=== PATIENT | male | born 1970 | race Hispanic/Latino ===

== ENCOUNTER 2017-12-06 11:46 | Emergency (ER) | payer BC ==
[2017-12-06 12:39] LABS: #Eosinphils 0.1 thou/uL (0.0-0.7); #Lymphocytes 1.9 thou/uL (1.20-3.40); #Neutrophils 8.4 thou/uL (1.40-6.50); %Basophils 0.3 % (0.0-1.0); %Eosinophils 0.6 % (0.0-10.0); %Lymphocytes 16.2 % (21.0-51.0); %Monocytes 9.2 % (0.0-10.0); %Neutrophils 73.8 % (42.0-75.0); Hemoglobin 14.9 g/dL (14.0-18.0); Mean Corpuscular HGB CONC 34.3 g/dL (32.0-36.0); Mean Corpuscular Hemoglobin 30.5 pg (27.0-31.0); Mean Corpuscular Volume 88.8 fl (80.0-94.0); Mean Platelet Volume 7.8 fL (7.4-10.4); Platelet Count 241 thou/uL (130-400); RBC Distribution Width 12.1 % (11.5-14.5); Red Blood Cell (RBC) Count 4.88 mill/uL (4.70-6.10); White Blood Cell (WBC) Count 11.4 thou/uL (4.8-10.8)
[2017-12-06] MEDS ORDERED: ISOVUE-370 76%-LOCM 1 ML ONE (13:11)
[2017-12-06 13:23] LABS: ALT (SGPT) 29 U/L (8-55); AST (SGOT) 12 U/L (5-34); Albumin 4.2 g/dL (3.5-5.0); Alkaline Phosphatase 67 U/L (40-150); Anion Gap 12 mmol/L (10-20); BUN (Urea Nitrogen) 15 mg/dL (8.9-20.6); Bilirubin, Total 2.2 mg/dL (0.2-1.2); Calc. Creatinine Clearance 0 mL/min (70-130); Calcium 8.8 mg/dL (7.8-10.44); Carbon Dioxide 24 mmol/L (22-29); Chloride 102 mmol/L (98-107); Estimated GFR-MDRD Greater than 90; Globulin 3.2 g/dL (2.4-3.5); Glucose 95 mg/dL (70-105); Potassium 3.6 mmol/L (3.5-5.1); Protein, Total 7.4 g/dL (6.0-8.3); Sodium 134 mmol/L (136-145)
[2017-12-06 13:25] LABS: Bilirubin Negative (Negative); Blood, Urine Negative (Negative); Clarity CLEAR (Clear); Glucose, Urine (Dipstick) Negative (Negative); Leukocyte Negative (Negative); Nitrite Negative (Negative); Protein, Urine (Dipstick) Negative (Neg-Trace); Urobilinogen 0.2 mg/dL (0.2-1.0)
[2017-12-06] MEDS ORDERED: Ketorolac Tromethamine 30 MG/ML VIAL ONE (13:55)
--- NOTE | 2017-12-06 15:29 | CT ---
CT ABDOMEN AND PELVIS WITH IV CONTRAST: INDICATIONS: History of abdominal pain and diverticulitis. FINDINGS: There is very mild wall thickening with pericolonic inflammatory stranding involving the sigmoid colo n, suspicious for mild, noncomplicated diverticulitis. No drainable fluid collection is grossly evid ent. There is fatty infiltration of the liver. There is a small hypodensity within the central aspect of the right hepatic lobe, which is stable to a comparison in 2017 and 2015, likely reflecting a small c yst. The adrenal glands, pancreas, and spleen appear within normal limits. The kidneys are normal a ppearing. No enlarged lymph nodes are evident. The appendix is surgically absent. No drainable fluid collection is evident. No definite acute osseous abnormality is evident. IMPRESSION: 1. Findings suspicious for mild, noncomplicated sigmoid diverticulitis. 2. Fatty liver. 3. Stable hepatic cyst. 4. Other chronic findings as above. POS: GAYLA
== END 2017-12-06 15:36 | disposition home or self-care (01) ==
LOC: ERS 11:46
DX: K57.92 Diverticulitis of intestine, part unspecified, without perforation or abscess without bleeding (principal); R33.9 Retention of urine, unspecified; Z79.899 Other long term (current) drug therapy
CPT/HCPCS: 74177; 80053; 81003; 83690; 85025; 96361; 96374; J1885

== ENCOUNTER 2018-03-15 20:50 | Emergency (ER) | payer BC ==
[2018-03-15 21:21] LABS: Bilirubin Negative (Negative); Blood, Urine Negative (Negative); Clarity CLEAR (Clear); Glucose, Urine (Dipstick) Negative (Negative); Leukocyte Negative (Negative); Nitrite Negative (Negative); Protein, Urine (Dipstick) Negative (Neg-Trace); Specific Gravity, Urine 1.009 (1.002-1.036); Urobilinogen 0.2 mg/dL (0.2-1.0)
[2018-03-15 22:22] LABS: Anion Gap 16 mmol/L (10-20); BUN (Urea Nitrogen) 16 mg/dL (8.9-20.6); Calc. Creatinine Clearance 0 mL/min (70-130); Carbon Dioxide 17 mmol/L (22-29); Chloride 105 mmol/L (98-107); Estimated GFR-MDRD 85; Glucose 88 mg/dL (70-105); Sodium 134 mmol/L (136-145)
[2018-03-15 22:27] LABS: Band 7 % (5-11); Eosinophils 2 % (0-10); Hemoglobin 15.4 g/dL (14.0-18.0); Lymphocytes 17 % (21-51); MDiff Complete? YES; Mean Corpuscular HGB CONC 35.3 g/dL (32.0-36.0); Mean Corpuscular Hemoglobin 31.5 pg (27.0-31.0); Mean Corpuscular Volume 89.4 fL (78.0-98.0); Mean Platelet Volume 9.2 fL (7.4-10.4); Monocytes 3 % (0-10); Neutrophil 71 % (42-75); PLT Morphology Comment Appears Decreased; Platelet Count 91 thou/uL (130-400); RBC Distribution Width 12.2 % (11.5-14.5); Red Blood Cell (RBC) Count 4.89 mill/uL (4.70-6.10); White Blood Cell (WBC) Count 14.8 thou/uL (4.8-10.8)
== END 2018-03-15 23:16 | disposition home or self-care (01) ==
LOC: ERS 20:50
DX: N41.9 Inflammatory disease of prostate, unspecified (principal); Z79.899 Other long term (current) drug therapy
CPT/HCPCS: 36415; 80048; 81003; 85025; 87086; 99283

== ENCOUNTER 2020-02-01 12:18 | Emergency (ER) | payer BC, OTHER | END 2020-02-01 12:55 | disposition home or self-care (01) | LOC: ERS 12:18 | DX: U07.1 COVID-19 (principal) | CPT/HCPCS: 87635; 99283; U0003 ==

== ENCOUNTER 2020-02-18 09:32 | Emergency (ER) | payer BC, OTHER ==
[2020-02-20 13:28] LABS: SARS-CoV-2 orf1ab Negative
[2020-02-20 13:29] LABS: SARS-CoV-2 MS2 Positive; SARS-CoV-2 N Gene Positive; SARS-CoV-2 S Gene Negative
== END 2020-02-18 10:07 | disposition home or self-care (01) ==
LOC: ERS 09:32
DX: U07.1 COVID-19 (principal)
CPT/HCPCS: 87635; 99283; U0003